=== PATIENT | male | born 1985 | race Hispanic/Latino ===

== ENCOUNTER 2022-10-12 13:41 | Emergency (ER) | payer BC ==
[2022-10-12] MEDS ORDERED: Fluorescein Opthalmic Strip ONE ×2 (14:27→14:29)
[2022-10-12] MEDS ORDERED: Tetracaine 0.5% PF 4 ML BOT ONE (14:27)
[2022-10-12] MEDS ORDERED: Acetaminophen 500 MG TAB ONE (16:03)
== END 2022-10-12 15:16 | disposition home or self-care (01) ==
LOC: CSHERS 13:41
DX: H18.70 Unspecified corneal deformity (principal)
CPT/HCPCS: 99283